=== PATIENT | male | born 1965 | race African-American/Black ===

== ENCOUNTER 2019-02-11 20:03 | Emergency (ER) | payer MEDICAID ==
[~2019-02-11] VITALS: Ht 188 cm; Wt 114.0 kg
[2019-02-11 21:03] VITALS: BP 135/80
== END 2019-02-11 23:24 | disposition left against medical advice (07) ==
LOC: ER 20:03
DX: S61.011A Laceration without foreign body of right thumb without damage to nail, initial encounter (principal); Z53.21 Procedure and treatment not carried out due to patient leaving prior to being seen by health care provider; X58.XXXA Exposure to other specified factors, initial encounter; Y93.89 Activity, other specified; Y92.89 Other specified places as the place of occurrence of the external cause; Y99.8 Other external cause status

== ENCOUNTER 2024-03-16 19:43 | Emergency (ER) | payer MEDICAID, OTHER ==
[~2024-03-16] VITALS: Ht 180.3 cm; Wt 100.0 kg
[2024-03-16 19:52] VITALS: O2SAT 98
[2024-03-16] MEDS ORDERED: BALANCED SALT IRRIG SOLN 15ML IR ONE (21:00)
[2024-03-16] MEDS: TETRACAINE 0.5% OPHTH DROPS 4ML LEFTEYE ONE (21:20)
[2024-03-16] MEDS: FLUORESCEIN SODIUM 1MG/STRIP LEFTEYE ONE (21:20)
[2024-03-16] MEDS: HYDROCODONE/ACETAMINOPHEN 5/325MG TABLET PO STA (21:21)
[2024-03-16] MEDS: BALANCED SALT IRRIG SOLN 15ML IR NR (23:04)
[2024-03-16 23:45] LABS: BASOPHILS % 1.1 % (0.0-2.0); EOSINOPHILS % 4.3 % (0.0-5.0); HEMATOCRIT. 41.9 % (42.0-52.0); HEMOGLOBIN. 13.8 g/dL (14.0-18.0); LYMPHOCYTES % 42.2 % (20.0-50.0); MEAN CORPUSCULAR HEMOGLOBIN 27.2 pg (28.0-32.0); MEAN CORPUSCULAR HGB CONC 32.9 g/dL (31.0-37.0); MEAN CORPUSCULAR VOLUME 82.5 fL (80.0-94.0); MEAN PLATELET VOLUME 8.4 fl (7.4-10.4); MONOCYTES % 6.6 % (2.0-8.0); NEUTROPHILS % 45.8 % (40.0-76.0); PLATELET 207 x1000/uL (130-400); RED BLOOD CELL COUNT 5.07 mill/uL (4.7-6.1); WHITE BLOOD COUNT 5.6 x1000/uL (4.5-11.0)
[2024-03-16 23:51] LABS: POTASSIUM 4.6 mEq/L (3.5-5.1)
[2024-03-16 23:52] LABS: CALCIUM 9.3 mg/dL (8.7-10.4)
[2024-03-16 23:57] LABS: CREATININE 1.5 mg/dL (0.6-1.3)
[2024-03-17 00:03] LABS: INR 0.9; PROTHROMBIN TIME 10.2 sec (9.6-11.0)
[2024-03-17] MEDS: VANCOMYCIN 1G PREMIX 200 ML IV ONE (02:23)
[2024-03-17] MEDS: PIPERACILLIN/TAZO 3.375G/50ML 50 ML IV ONE (02:23)
[2024-03-17] MEDS: TETANUS, DIPHTHERIA, PERTUSSIS VAC/PF 0.5ML (>10YR OLD) IM ONE (06:46)
[2024-03-17] MEDS: HYDRALAZINE 20MG/ML VIAL IV ONE (10:02)
[2024-03-17 10:07] VITALS: BP 184/97; PULSE 68; RESP 19; TEMP 98.8
== END 2024-03-17 10:40 | disposition short-term general hospital (02) ==
LOC: ER 19:43
DX: S05.42XA Penetrating wound of orbit with or without foreign body, left eye, initial encounter (principal); H11.32 Conjunctival hemorrhage, left eye; Y08.89XA Assault by other specified means, initial encounter; Y93.89 Activity, other specified; Y92.89 Other specified places as the place of occurrence of the external cause; Y99.8 Other external cause status
CPT/HCPCS: 80048; 85025; 85610; 36415; 71046; 70450; 70486; 99285; 82962; 90715; 96368; 90471; 96365; 96366; 96375; J0360; J2543; J3370; Z7610 ×2

== ENCOUNTER 2024-10-09 02:49 | Emergency (ER) | payer OTHER ==
[~2024-10-09] VITALS: Ht 172.7 cm; Wt 91.0 kg
[2024-10-09 02:54] VITALS: O2SAT 100
[2024-10-09] MEDS: SODIUM CHLORIDE 0.9% 1,000 ML IV ONE (05:08)
[2024-10-09 05:17] VITALS: BP 116/71; PULSE 77; RESP 18; TEMP 36.7; O2SAT 98
== END 2024-10-09 05:28 | disposition home or self-care (01) ==
LOC: ER 02:49
DX: E11.65 Type 2 diabetes mellitus with hyperglycemia (principal); I10 Essential (primary) hypertension; Z00.00 Encounter for general adult medical examination without abnormal findings
CPT/HCPCS: 99283; 71045; 82962; J7030